=== PATIENT | male | born 1955 | race Caucasian/White ===

== ENCOUNTER → 2021-03-26 | Outpatient (CLI) | payer BC ==
[~2021-03-26] MED LIST: LISINOPRIL20 MG PO; MULTI VITAMIN1 EACH PO; SUBOXONE 8 MG-1 EAC3 SUBLING
[2021-03-26 09:23] LABS: HEMATOCRIT 43.8 % (42.0-52.0); HEMOGLOBIN 14.7 gm/dL (14.0-18.0); MCH 29.3 pg (26.0-34.0); MCHC 33.5 g/dL (28.0-37.0); MCV 87.3 fL (80.0-100.0); RBC 5.01 mil/uL (4.50-6.00); RDW 13.2 % (10.5-14.5); WBC 7.2 thou/uL (4.0-11.0)
[2021-03-26 09:30] LABS: URINE BILIRUBIN NEGATIVE (Negative); URINE BLOOD NEGATIVE (Negative); URINE CLARITY CLEAR; URINE COLOR YELLOW; URINE GLUCOSE-RANDOM* NEGATIVE (Negative); URINE KETONES NEGATIVE (Negative); URINE LEUKOCYTES-REFLEX NEGATIVE (Negative); URINE NITRITE-REFLEX NEGATIVE (Negative); URINE PROTEIN (DIPSTICK) NEGATIVE (Negative); URINE SPECIFIC GRAVITY 1.025 (1.005-1.035); URINE UROBILINOGEN 0.2 E.U./dl (0.2-1.0)
--- NOTE | 2021-03-26 09:31 | EKG ---
[address] [address] ELECTROCARDIOGRAM REPORT Name: BYRON SIMMONS Room #: REG SABRA Contreras#: [id number] Admission: 03/26/21 Attend Phys: Zane Lovelace, Discharge: Date of : 57 Report #: [id number] [facility] Test Date: 2021-03-26 Test Time: 09:04:44 Pat Name: BYRON SIMMONS Department: Room: Gender: Chairlift Operator: Ramiro GARCIA : 1955 Requested By: Zane Lovelace Order Number: [id number] MD: Alvaro Masters Measurements Intervals Wilson Rate: 60 P: 37 MD: 167 QRS: -5 QRSD: 89 T: 5 QT: 404 QTc: 404 Interpretive Statements Sinus rhythm No previous ECG available for comparison Electronically Signed On 03-26-2021 9:31:20 CUSTOMER SERVICE REPRESENTATIVE TELLER by Alvaro Masters [email or web address] <ELECTRONICALLY SIGNED> By: Alvaro Masters MD, [facility] 03/26/2131 0904 Alvaro Masters MD, FACC /EPI
[2021-03-26 09:37] LABS: APTT 27.8 Seconds (24.5-32.8); INR 0.98; PROTIME 10.7 Seconds (10.5-12.1)
[2021-03-26 09:40] LABS: ALBUMIN 4.3 g/dL (3.4-5.0); CALCIUM 9.5 mg/dL (8.5-10.1); CREATININE 0.9 mg/dL (0.7-1.3); POTASSIUM 4.5 mmol/L (3.5-5.1); TOTAL BILIRUBIN 0.6 mg/dL (0.2-1.0); TOTAL PROTEIN 7.5 g/dL (6.4-8.2)
== END ==
LOC: PAC 07:53
PROVIDERS: ATTEND Specialist
DX: Z01.812 Encounter for preprocedural laboratory examination (principal); Z01.810 Encounter for preprocedural cardiovascular examination; M43.16 Spondylolisthesis, lumbar region; M48.061 Spinal stenosis, lumbar region without neurogenic claudication